=== PATIENT | female | born 1970 ===

== ENCOUNTER → 2018-02-01 | Outpatient (CLI) | payer OTHER ==
[~2018-02-01] MED LIST: CYAN1DRO SC; LEVO125T72 PO
== END | disposition home or self-care (01) ==
LOC: C.RDSM 12:32
PROVIDERS: ATTEND Physical Medicine & Rehabilitation Sports Medicine
DX: M25.511 Pain in right shoulder (principal)

== ENCOUNTER → 2018-02-16 | Day surgery (SDC) | payer OTHER ==
[2018-02-03 10:43] VITALS: Ht 154.9 cm; Wt 65.9 kg
[~2018-02-16] VITALS: Ht 154.9 cm; Wt 65.9 kg
[~2018-02-16] MED LIST changes: +ATROPINE SULFATE 0.1 MG/ML 5ML SYR IV PRN; +BUPIVACAINE 0.5 % 5 MG/1 ML PF 10ML VIAL ONE; +BUPIVACAINE/EPINEPHRINE 0.5% MPF 1:200,000 30 ML VIAL ONE; +CEFAZOLIN 2000MG IV PUSH 15 ML IV SCH; +CEFTRIAXONE 2000MG IV SCH; +CEFTRIAXONE SOD 2 GM VIAL IV ONE; +DEXAMETHASONE SOD INJ 4 MG/ML VIAL IV PRN; +DEXAMETHASONE SOD INJ 4 MG/ML VIAL ONE; +EpHEDrine SULFATE 50MG/5ML SYR ONE; +EpHEDrine SULFATE INJ 50 MG/ML AMP IV PRN; +EpINEphrine INJ 1MG/ML AMP 1 MG/ML AMP ONE; +FENTANYL CITRATE INJ 50 MCG/1 ML 2 ML VIAL IV PRN; +FENTANYL CITRATE INJ 50 MCG/1 ML 2 ML VIAL ONE; +KETOROLAC TROMETHAMINE 30 MG/ML VIAL IV. PRN; +LABETALOL HCL IV 5 MG/ML 20ML IV PRN; +LACTATED RINGER'S 1000ML 1,000 ML IV SCH; +LIDOCAINE HCL 1% MPF 2 ML VIAL ONE; +LIDOCAINE HCL 2% 2 ML VIAL (20MG/ML) ONE; +METOCLOPRAMIDE HCL INJ 5 MG/ML 2 ML VIAL IV PRN; +MIDAZOLAM HCL 1 MG/ML 2ML VIAL ONE; +MoRPHine SULFATE 10 MG/ML CARP/VIAL IV PRN; +ONDANSETRON INJ 2 MG/ML 2 ML VIAL IV PRN; +ONDANSETRON INJ 2 MG/ML 2 ML VIAL ONE; +OXYCODONE/ACETAMINOPHEN 5-325 TAB PO PRN; +PHENYLEPHRINE 100MCG/ML 5ML SYR IV PRN; +PROPOFOL IV EMULSION 10 MG/ML 20 ML VIAL ONE; +ROPIVACAINE 0.5% 5 MG/ML 30 ML VIAL ONE; +SODIUM CHLORIDE 0.9% 1000ML 1,000 ML IV SCH
--- NOTE | 2018-02-16 06:45 | History & Physical Bridge Note ---
H&P Re-Evaluation Bridge Note: I have examined the patient, reviewed the History & Physical and in the interval since the performance of the History & Physical I have noted the following changes of clinical significance: consent obtained.No changes noted
--- NOTE | 2018-02-16 06:47 | Discharge Instructions ---
Discharge Instructions Date of Service Feb 16, 2018. Visit Reason for Visit: Right Shoulder Supraspinatous/Infraspinatous Tear Discharge Discharge Diagnosis / Problem: same Discharge Goals Goal(s): Decrease discomfort, Improve function Medications Stopped Medications Name(s): na Restart Stopped Medication(s): use scripts as directed. Activity Recommendations Activity Limitations: as noted below Lifting Limitations: until after follow-up appointment Exercise/Sports Limitations: until after follow-up appointment May Resume Sexual Activity: after follow-up appointment Shower/Bathe: keep incision dry Driving or Machine Use: Anesthesia . Post Anesthesia Instructions: If you have had General Anesthesia or IV Sedation: * Do not drive today. * Resume driving when surgeon permits. * Do not make important decisions or sign legal documents today. * Call surgeon for: 1. Temperature elevations greater than 101 degrees F. 2. Uncontrollable pain. 3. Excessive bleeding. 4. Persistent nausea and vomiting. 5. Medication intolerance (nausea, vomiting or rash). * For nausea and vomiting use only clear liquids such as: tea, soda, bouillon until nausea subsides, then gradually increase diet as tolerated. * If you have any concerns or questions, call your surgeon's office. If physician is unavailable and it is an emergency, call 911 or go to the nearest emergency room. . Instructions / Follow-Up Instructions / Follow-Up The following are instructions to follow after "Shoulder Surgery" including, Acromioplasty, Rotator Cuff Repair and Instability Surgery ACTIVITY RECOMMENDATIONS: * Minimize activity after surgery. * No excessive walking, jogging, sports or laboring. * Return to activity is individualized depending on the patient and type of surgery. * Driving is not permitted until at least your first post operative visit. Please ask your doctor when it is safe to resume driving. * Expect increased discomfort with increased activity. Continue to ice the shoulder as needed. SCHOOL/WORK RECOMMENDATIONS: * You may return to sedentary work or school when you are feeling more comfortable. This is usually 3-7 days after surgery. MEDICATIONS: * You will have a prescription for pain medication and an anti-inflammatory medication after surgery. * Use the pain medication for severe pain and the anti-inflammatory for less severe pain. Once the pain medication has run out, try to use the anti-inflammatory medication. If this is not effective, contact the office for assistance. * The pain medication may cause nausea, constipation and drowsiness. You should see how they affect you before driving or similar activity. * The anti-inflammatory medication may cause stomach upset and bleeding. If this occurs let your doctor know immediately . * Take a stool softener like Colace or a laxative like Senokot to prevent constipation. DIET: * Resume previous diet. SPECIAL CARE: ICE: You have the option of an ice cooler, gel packs or ice bags. * If you have an ice cooler, refer to the instructions for that device. The ice cooler may be used continuously. * If you do not have an ice cooler, you will need to use ice bags or gel packs. Do not apply ice directly to the skin. Use a thin dressing or cecilia shirt between the skin and ice bag. Apply ice for 20-30 minutes and repeat every 2-4 hours. This is especially important for the first 7-10 days after surgery. Once the pain improves, use ice as needed. ELEVATION: * You may be more comfortable sleeping in an upright position. Use the sling to elevate your arm. DRESSING: * Your dressing will be changed at your first therapy appointment approximately 4-5 days after surgery. Band-aids, tape strips or gauze may be applied. You may then change your dressing daily. * Reapply dressing followed by the EBIce cooling pad (if chosen) and then the sling. * Always wash your hands prior to touching the incision area. * Once the stitches are removed, you may leave the wound open to air or cover with gauze. * Expect some bloody drainage for the first few days after surgery. * Leave the tape strips, if present, in place for 5-7 days. * Band-aids and gauze may be changed daily. * There may be a gauze pad in your armpit area. This can be changed daily or replaced by a dry washcloth. SLING/BRACE: * You will need to use a sling or brace after surgery. The length of time the sling is used is dependent upon the type of surgery performed. * Arthroscopic Acromioplasty requires use of the sling for 2-4 weeks for comfort. * Labral procedures and Rotator Cuff Repairs require use of the sling for a longer period of time. Please check with your doctor prior to discontinuing the sling. BATHING: * You may shower or sponge-bathe immediately after surgery. The post operative shoulder dressing is mostly water-tight. You may shower right over this dressing, but be reasonably careful not to get the gauze or incision wet. * Once the dressing has been changed on the fourth or fifth day after surgery, you may shower and get the incision wet. * Wash with regular soap and water. * Do not bathe (submerge the incision), soak, swim or use a hot tub until the incision is completely healed over with normal skin and the doctor has given the OK to proceed. * There is no need to apply any ointments, powders or salves to your incision. * Do not apply alcohol or hydrogen peroxide directly to the incision. * Diluted peroxide (50:50 mixture with sterile saline) may be used to clean dried blood from around the incision area. THERAPY: * You will begin therapy four or five days after surgery. * Organized therapy with the therapist is important for the first 2-4 months after surgery depending on the type of procedure. During that time you will attend therapy 1-3 times per week. * You will also need to do daily exercises for range of motion and strength as instructed. * Patients who have a Capsular Shift Procedure will need to abide by temporary range of motion limitations. * Patients having Rotator Cuff Surgery are not allowed to actively lift their arms until 4-6 weeks after surgery. * Please check with your doctor regarding appropriate motion restrictions. FOLLOW UP VISIT: * If not already scheduled, please call the office at to schedule a follow-up appointment for 10 days after surgery and monthly thereafter. Diet Recommendations Recommended Home Diet: resume previous diet Procedures Procedures Performed: see op note. Pending Studies Studies pending at discharge: no Medical Emergencies . Who to Call and When: Medical Emergencies: If at any time you feel your situation is an emergency, please call 911 immediately. . Non-Emergent Contact Non-Emergency issues call your: Specialist Call Non-Emergent contact if: wound has increased drainage, wound has increased redness, wound has increased pain . . "Provider Documentation" section prepared by Jatin Traylor. .
--- NOTE | 2018-02-16 08:43 | [facility] Post Operative Brief Note ---
Immediate Operative Summary Operative Date Feb 16, 2018. Pre-Operative Diagnosis Right Shoulder Supraspinatous/Infraspinatous Tear Post-Operative Diagnosis same as pre op Procedure(s) Performed EUA, Right Shoulder Arthroscopy with Double Row Repair of Massive Rotator Cuff Surgeon Dr Traylor Manager Product Marketing Surgeon(s) ROBERT Bernal Estimated Blood Loss Trace Findings Consistent with Post-Op Diagnosis Fluids (cc crystalloids) 800cc Specimens NONE Drains None Anesthesia Type General Regional Complication(s) none Disposition Accompanied Pt To Recover: no Overlapping Procedure I was immediately available: during the entire case
--- NOTE | 2018-02-16 09:22 | OPERATIVE REPORT ---
DATE OF OPERATION: 02/16/2018 SURGEON: Jatin Traylor MD. GRANTS AND CONTRACTS ASSISTANT: Raman Covington PA-C. No resident or fellow available. PREOPERATIVE DIAGNOSIS: Recurrent rotator cuff tear, right shoulder. POSTOPERATIVE DIAGNOSIS: Recurrent rotator cuff tear, right shoulder, with a massive tear. OPERATIONS PERFORMED: 1. Exam under anesthesia. 2. Diagnostic arthroscopy. 3. Arthroscopic all-inside double row massive rotator cuff repair with 4.75 Arthrex FiberTape anchors. PERIOPERATIVE SITUATION: Medically cleared female who unfortunately reinjured her shoulder sustaining recurrent rotator cuff tear. It was previously repaired. At this point in time, physical exam, x-ray, and MRI scan consistent with a large massive type tear. Arrangements were made for potential patch augmentation pending tissue quality and intraoperative findings. DESCRIPTION OF PROCEDURE: Patient appropriately identified, site verified, consent verified. Antibiotics confirmed as being given. The shoulder was examined revealing no instability. She was then carefully placed in a beach chair position, and the right upper extremity prepped and draped in the usual routine fashion. A posterior portal was then made 2 cm medial and inferior to posterolateral tip of the acromion. Joint was entered without difficulty. An anterior portal was then made just off the edge of the AC joint. The joint entered without difficulty. Inspection of the joint was noted to be easily visible rotator cuff tear. There were no visible sutures, no visible anchors. The tendon was then easily mobilized. The intraarticular portion of the procedure did not reveal any significant articular disease. The biceps tendon was left alone. The subacromial space was then entered and light bursectomy performed. There was no bony work performed. The tissue was then mobilized. Accessory portals were made directly laterally just off the edge of the acromion at the posterior and anterior aspects of the tear, which was probably 4.5 cm in length. The footprint was then debrided. The tendon could be easily mobilized to the [place] footprint. Using percutaneous stab incisions, the posterior anchor and anterior anchor were placed. The sutures were then kept out of the way in the skin using the scorpion, and then they were individually passed through the anterolateral portal, which was made utilizing a Keerthi anchor. The posterior suture was passed first, the anterior second, and then sutures were then placed 1 limb on each side to create a crisscross pattern for the double row. The tendon was then advanced easily. Two additional anchors were then placed on the lateral margin of the humerus, the posterior anchor first and the anterior anchor second. Excellent church of the footprint was obtained. An additional suture was then tied anteriorly in a freehand fashion. This was with the suture that was left in the anchor. The posterior stitch was removed. The shoulder was then moved. There was good church of the footprint with the tendon and with the arm moved through internal and external rotation, abduction, and adduction. As a result, it was felt that there was an adequate repair here. The procedure was then terminated. There was no indication for augmentation with the patch graft. All instruments and fluid were then removed. The portals closed with 3-0 nylon and then dressed with Xeroform, 4x4 gauze, ABD pads, and Ioban dressing. The arm was then placed in her sling that she had from her previous procedure. Estimated blood loss was trace. Crystalloid was 800 mL. No DVT prophylaxis required. I attest to the content of the Intraoperative Record and any orders documented therein. Any exception s are noted below.
--- NOTE | 2018-02-16 10:00 | Anesthesia Progress Nt - [facility] ---
Anesthesia Post Op Note Date & Time Feb 16, 2018 at 10:00 Vital Signs Pain Intensity: 0 Vital Signs Past 12 Hours Date Time Temp Pulse Resp B/P (MAP) Pulse Ox O2 Delivery O2 Flow Rate FiO2 02/16/18 09:43 76 22 02/16/18 09:43 76 22 93 02/16/18 09:41 146/93 02/16/18 09:40 36.3 72 20 146/93 94 Room Air 02/16/18 09:38 89 26 02/16/18 09:38 92 26 93 02/16/18 09:36 159/115 02/16/18 09:33 80 24 02/16/18 09:33 81 24 94 02/16/18 09:31 159/117 02/16/18 09:28 90 12 02/16/18 09:28 90 12 93 02/16/18 09:26 149/111 02/16/18 09:23 73 26 95 02/16/18 09:23 74 26 02/16/18 09:21 140/115 02/16/18 09:18 81 25 02/16/18 09:18 81 25 95 02/16/18 09:16 145/106 02/16/18 09:13 80 21 95 02/16/18 09:13 80 21 02/16/18 09:11 151/103 02/16/18 09:08 85 18 99 02/16/18 09:08 84 18 02/16/18 09:06 139/97 02/16/18 09:03 60 14 02/16/18 09:03 55 14 99 02/16/18 09:01 122/80 02/16/18 08:58 60 14 98 02/16/18 08:58 57 14 02/16/18 08:57 116/71 02/16/18 08:55 36.3 60 16 116/71 96 Mask 6 02/16/18 07:38 54 28 100 02/16/18 07:38 55 02/16/18 07:37 58 02/16/18 07:37 57 0 99 02/16/18 07:36 113/72 02/16/18 07:32 54 18 100 02/16/18 07:32 53 02/16/18 07:31 113/66 02/16/18 07:27 52 02/16/18 07:27 53 20 106/72 100 8/21/18 07:22 56 23 99 02/16/18 07:22 57 02/16/18 07:17 52 02/16/18 07:17 51 8 98 02/16/18 07:16 111/92 02/16/18 07:12 53 0 02/16/18 07:07 67 0 02/16/18 07:02 59 0 02/16/18 06:57 55 0 02/16/18 06:52 0 02/16/18 06:47 0 02/16/18 06:42 0 02/16/18 06:37 0 02/16/18 06:32 0 02/16/18 06:29 36.4 61 18 127/85 (99) 98 Room Air Notes Mental Status: alert / awake / arousable, participated in evaluation Pt Amnestic to Procedure: Yes Nausea / Vomiting: adequately controlled Pain: adequately controlled Airway Patency, RR, SpO2: stable & adequate BP & HR: stable & adequate Hydration State: stable & adequate Anesthetic Complications: no major complications apparent
[2018-02-16 10:29] VITALS: BP 125/85; PULSE 71; TEMP 36.4; O2SAT 97
--- NOTE | 2018-02-16 11:36 | [facility] Operative Report ---
Operative Report Operative Date Feb 16, 2018. Pre-Operative Diagnosis Right Shoulder Supraspinatous/Infraspinatous Tear Post-Operative Diagnosis Right shoulder same as pre op Procedure(s) Performed Exam Under Anesthesia, Right Shoulder Arthroscopy with Double Row Repair of Massive Rotator Cuff Surgeon Dr Traylor Conveyor Man Surgeon(s) ROBERT Bernal Estimated Blood Loss Trace Findings Right shoulder massive rotator cuff tear Fluids 800cc Specimens NONE Drains None Anesthesia Type General Regional Complication(s) none Disposition no Indications This 47-year-old white female presented to the office with complaints of persisting right shoulder pain after injuring herself this past spring. She previously had a right shoulder rotator cuff repair last fall. He was doing well until she lifted her large dog. She felt a pop and had persisting pain. X -ray and MRI were obtained. She elected to proceed with surgical intervention after being educated about potential risks and outcomes. Description of Procedure She was administered a regional block and then taken to the operating room where she was given general anesthesia. She was prepped and draped in usual sterile fashion. Please see Dr. Traylor's operative report for specifics of the procedure. I was present for the entire case from initial patient positioning through final wound closure. Assistance was provided in arthroscopy , hardware placement, and final wound closure. Patient was taken to the recovery room in satisfactory condition. I attest to the content of the Intraoperative Record and any orders documented therein. Any exceptions are noted below.
== END | disposition home or self-care (01) ==
LOC: X.SURG 06:07
PROVIDERS: ATTEND Physical Medicine & Rehabilitation Sports Medicine
DX: M75.101 Unspecified rotator cuff tear or rupture of right shoulder, not specified as traumatic (principal); M75.41 Impingement syndrome of right shoulder; M19.90 Unspecified osteoarthritis, unspecified site; F32.9 Major depressive disorder, single episode, unspecified; E89.0 Postprocedural hypothyroidism; Z90.710 Acquired absence of both cervix and uterus; Z98.84 Bariatric surgery status; Z87.891 Personal history of nicotine dependence; Z85.850 Personal history of malignant neoplasm of thyroid